=== PATIENT | female | born 1930 | race Caucasian/White ===

== ENCOUNTER 2018-03-23 12:57 | Inpatient (IN) | payer MEDICARE, BC ==
[~2018-03-23] VITALS: Ht 172.7 cm; Wt 60.8 kg
--- NOTE | ~2018-03-23 | HP ---
PATIENT: COREY GUILLEN MEDICAL RECORD: [id number] ACCOUNT: [id number] LOCATION:[facility] [id number] : [birth year] ADMISSION DATE: 03/23/18 HISTORY AND PHYSICAL EXAMINATION HISTORY OF PRESENT ILLNESS: An 87-year-old female, presented to the Emergency Room with a complaint of left lower quadrant abdominal pain, bright red blood 2 episodes this morning with a bowel movement, cramping, aching, similar episode 3 years ago with no significant findings after being treated for colitis. PAST MEDICAL HISTORY: Significant for hypertension, hyperlipidemia, angina. CURRENT MEDICATIONS: Listed as lisinopril, aspirin, Plavix, metoprolol. ALLERGIES: REPORTED MACRODANTIN. FAMILY HISTORY: Noncontributory. REVIEW OF SYSTEMS: GENERAL: No acute change in weight or appetite. HEENT: No cephalgia, visual changes, tinnitus, epistaxis, or dysphagia. CARDIOVASCULAR: Denies chest pain or palpitations. PULMONARY: Denies hemoptysis, denies shortness of breath. GASTROINTESTINAL: Admits hematochezia, left lower quadrant abdominal pain. Denies weight loss. GENITOURINARY: Denies dysuria. MUSCULOSKELETAL: No acute changes. ENDOCRINE: Denies polyuria, polydipsia, or polyphagia. PHYSICAL EXAMINATION: VITAL SIGNS: Temp 98.7, blood pressure 144/79, heart rate 94, respirations 20, O2 sats 96% room air. GENERAL: Alert, oriented, presently comfortable. HEENT: Normocephalic, atraumatic. Eyes: Pupils equal, round, reactive to light and accommodation. Extraocular muscles are intact. Conjunctivae is not injected. Ears: Canals patent, TMs are intact. Nose: Nares patent without drainage. Throat: No erythema, no exudates. NECK: Supple. No lymphadenopathy, no JVD. HEART: Regular rate and rhythm. No S3, S4, no rub. LUNGS: Clear to auscultation bilaterally. Breathing is nonlabored. ABDOMEN: Soft, mild left lower quadrant tenderness. No rebound or guarding. No palpable mass. EXTREMITIES: Present times 4. NEUROLOGIC: No focal deficits. Cranial nerves grossly intact. LABORATORY DATA: CBC: White count 10.1, hemoglobin 14.3, hematocrit 43.5, platelets 212. PT is 12.3, INR is 0.95, PTT is 24.4. Chemistry shows a sodium of 138, potassium 4.4, chloride 102, bicarbonate 24.8, BUN 16, creatinine 1.0, glucose 137. Stool was heme positive. LFTs normal. Lipase 152. CT shows thickening of the sigmoid colon consistent with acute colitis. ASSESSMENT AND PLAN: 1. Hematochezia, left lower quadrant abdominal pain, colitis. The patient started on empiric antibiotics, GI consulted. Monitor H&H. HISTORY AND PHYSICAL [id number] COREY GUILLEN 2. Hypertension, cautious. Restart her blood pressure medicines, monitor, supportive care. TRANSINT:[id number] Voice Confirmation ID: [id number] DOCUMENT ID: [id number] ALEXANDR WISE DO at 0930 CC: [id number] DICTATION DATE: 03/23/181916 CARPENTER ASSEMBLER: 03/23/181945 ADM IN [facility] [address] [place] [address]
--- NOTE | ~2018-03-23 | DS ---
PATIENT:COREY GUILLEN :[birth year] MEDICAL RECORD: [id number] DISCHARGE SUMMARY ADMISSION DATE: 03/23/18 DISCHARGE DATE: 03/26/18 DATE OF ADMISSION: 03/23/2018 DATE OF DISCHARGE: 03/26/2018 CONDITION ON DISCHARGE: Improved. ADMITTING DIAGNOSES: Hematochezia, left lower quadrant pain, hypertension. DISCHARGE DIAGNOSES: Lower GI bleed, essential hypertension, hyperlipidemia. HOSPITAL COURSE: This patient is an 87-year-old female who presented through the Emergency Room complaining of left lower quadrant pain as well as bright red blood times 2 episodes. She had been aching. She had a similar episode 3 years prior. PHYSICAL EXAMINATION: VITAL SIGNS: She was afebrile. Her vital signs were stable. HEENT: Unremarkable. NECK: Supple. There was no adenopathy. HEART: Regular. LUNGS: Clear. She had left lower quadrant tenderness. White count was 10.1, hemoglobin 14.3, hematocrit 43.5, and platelets 212. PT was 12.3, INR 0.95, PTT was 24.4. LFTs were normal. CT showed thickening of the sigmoid colon consistent with acute colitis. The patient was admitted and placed on IV antibiotics. GI consultation was obtained. She was seen in consultation by Dr. Jamison. She did agree with antibiotics as well as felt the patient was at a very high risk for any instrumentation. Should the patient continue to have rectal bleeding, it was felt that she should consider CTA of the abdomen as well as possible flexible sigmoidoscopy. The patient's condition did improve with IV antibiotics. On the 1st, her white count was 5.8, hemoglobin 10.7, hematocrit was 32.5, and her platelets were 166. Sodium 144, potassium 3.7, chloride 109, BUN 11, creatinine 0.8. The patient was stable. It was felt she could be discharged. She was discharged on lisinopril 10 mg one p.o. daily, Pravachol 20 mg once a day, Lopressor 25 mg p.o. b.i.d., Plavix 75 mg p.o. daily, Cipro 500 mg p.o. b.i.d. for 10 days total, Flagyl 500 mg p.o. t.i.d. for 10 days total. The patient is to be on a high-fiber diet. Activities ad sahquille. She will follow up with me in approximately one week. TRANSINT:[id number] Voice Confirmation ID: [id number] DOCUMENT ID: [id number] AMADOR IYER MD at 0701 CC: [id number] DICTATION DATE: 04/28/18 1508 ADMINISTRATIVE AIDE: 04/28/18 2322 DIS IN 03/26/18 [id number] [place] [address]
[~2018-03-23 12:57] MED LIST: LISINOPRIL10 MG PO; LOPRESSOR25 MG PO; PLAVIX75 MG PO; PRAVACHOL20 MG PO
[2018-03-23 13:23] LABS: BASOPHILS 0.2 % (0-2); EOSINOPHILS 0.1 % (0-7); HEMATOCRIT 43.5 % (36.0-48.0); HEMOGLOBIN 14.3 g/dL (12-16); IMMATURE GRANULOCYTES 0.2 % (0-5); LYMPHOCYTES 20.9 % (15-50); MCHC 32.9 g/dL (31.0-37.0); MCV 97.3 fL (80.0-100.0); MONOCYTES 4.5 % (2-11); NEUTROPHILS 74.1 % (40-80); PLATELET COUNT 212 10x3/uL (130-400); RBC 4.47 10x6/uL (4.00-5.40); RDW 13.9 % (11.5-14.5); WBC 10.1 10x3/uL (4.8-10.8)
[2018-03-23 13:33] LABS: INR 0.95 (0.85-1.17); PROTIME 12.3 SECONDS (11.6-15.0)
[2018-03-23 13:34] LABS: APTT 24.4 SECONDS (22.8-39.4)
[2018-03-23 13:39] LABS: ALBUMIN 3.7 g/dL (3.4-5.0); ANION GAP 15.6 mmol/L (8-16); BILIRUBIN - TOTAL 0.58 mg/dL (0.2-1.3); CALCIUM 9.4 mg/dL (8.5-10.1); CARBON DIOXIDE 24.8 mmol/L (21.0-32.0); POTASSIUM - SERUM 4.4 mmol/L (3.5-5.1); PROTEIN - SERUM 7.7 g/dL (6.4-8.2)
[2018-03-23 22:58] VITALS: BP 153/48
[2018-03-24 00:49] VITALS: BP 153/48; BMI 20.4
[2018-03-24 06:17] LABS: BASOPHILS 0.3 % (0-2); EOSINOPHILS 0.6 % (0-7); IMMATURE GRANULOCYTES 0.3 % (0-5); LYMPHOCYTES 43.9 % (15-50); MCH 31.2 pg (26.0-34.0); MCHC 32.1 g/dL (31.0-37.0); MCV 97.1 fL (80.0-100.0); MEAN PLATELET VOLUME 11.2 fL (7.4-10.4); MONOCYTES 9.3 % (2-11); NEUTROPHILS 45.6 % (40-80); RDW 14.2 % (11.5-14.5)
[2018-03-24 06:21] LABS: PROTIME 14.4 SECONDS (11.6-15.0)
[2018-03-24 06:22] LABS: APTT 26.9 SECONDS (22.8-39.4); INR 1.16 (0.85-1.17)
[2018-03-24 06:23] LABS: HEMATOCRIT 33.6 % (36.0-48.0); HEMOGLOBIN 10.8 g/dL (12-16); PLATELET COUNT 161 10x3/uL (130-400); RBC 3.46 10x6/uL (4.00-5.40); WBC 6.9 10x3/uL (4.8-10.8)
[2018-03-24 06:31] LABS: ALBUMIN 2.8 g/dL (3.4-5.0); ANION GAP 11.3 mmol/L (8-16); BILIRUBIN - TOTAL 0.5 mg/dL (0.2-1.3); C-REACTIVE PROTEIN 1.4 mg/dL (0.0-0.9); CALCIUM 8.4 mg/dL (8.5-10.1); CARBON DIOXIDE 27.4 mmol/L (21.0-32.0); CREATININE - SERUM 0.9 mg/dL (0.6-1.3); POTASSIUM - SERUM 3.7 mmol/L (3.5-5.1); PROTEIN - SERUM 5.8 g/dL (6.4-8.2)
[2018-03-24 08:16] VITALS: BP 109/47
[2018-03-24 12:25] VITALS: BP 120/63
[2018-03-24 15:55] VITALS: BP 125/55
[2018-03-24 18:28] LABS: HEMATOCRIT 32.8 % (36.0-48.0); HEMOGLOBIN 10.5 g/dL (12-16)
[2018-03-24 21:56] VITALS: BP 135/55
[2018-03-25 02:13] VITALS: BP 137/51
[2018-03-25 06:13] LABS: BASOPHILS 0.5 % (0-2); EOSINOPHILS 0.8 % (0-7); HEMATOCRIT 33.3 % (36.0-48.0); HEMOGLOBIN 10.8 g/dL (12-16); IMMATURE GRANULOCYTES 0.2 % (0-5); LYMPHOCYTES 37.3 % (15-50); MCH 31.4 pg (26.0-34.0); MCHC 32.4 g/dL (31.0-37.0); MCV 96.8 fL (80.0-100.0); MEAN PLATELET VOLUME 11.1 fL (7.4-10.4); MONOCYTES 8.9 % (2-11); NEUTROPHILS 52.3 % (40-80); PLATELET COUNT 168 10x3/uL (130-400); RBC 3.44 10x6/uL (4.00-5.40); RDW 14.4 % (11.5-14.5); WBC 6.5 10x3/uL (4.8-10.8)
[2018-03-25 06:44] LABS: ALBUMIN 2.8 g/dL (3.4-5.0); ANION GAP 14.6 mmol/L (8-16); BILIRUBIN - TOTAL 0.44 mg/dL (0.2-1.3); CALCIUM 8.3 mg/dL (8.5-10.1); CARBON DIOXIDE 24.7 mmol/L (21.0-32.0); CREATININE - SERUM 0.8 mg/dL (0.6-1.3); POTASSIUM - SERUM 3.3 mmol/L (3.5-5.1)
[2018-03-25 09:41] VITALS: BP 165/65
[2018-03-25 13:12] VITALS: BP 184/63
[2018-03-25 14:30] VITALS: Ht 172.7 cm; Wt 60.8 kg
[2018-03-25 17:17] VITALS: BP 169/70
[2018-03-26 05:03] LABS: BASOPHILS 0.3 % (0-2); HEMATOCRIT 32.5 % (36.0-48.0); HEMOGLOBIN 10.7 g/dL (12-16); IMMATURE GRANULOCYTES 0.2 % (0-5); LYMPHOCYTES 36.8 % (15-50); MCH 31.6 pg (26.0-34.0); MCHC 32.9 g/dL (31.0-37.0); MCV 95.9 fL (80.0-100.0); MEAN PLATELET VOLUME 11.2 fL (7.4-10.4); MONOCYTES 10.5 % (2-11); NEUTROPHILS 51.2 % (40-80); PLATELET COUNT 166 10x3/uL (130-400); RBC 3.39 10x6/uL (4.00-5.40); RDW 14.1 % (11.5-14.5); WBC 5.8 10x3/uL (4.8-10.8)
[2018-03-26 05:16] LABS: ANION GAP 11.8 mmol/L (8-16); CALCIUM 8.5 mg/dL (8.5-10.1); CARBON DIOXIDE 26.9 mmol/L (21.0-32.0); CREATININE - SERUM 0.8 mg/dL (0.6-1.3); POTASSIUM - SERUM 3.7 mmol/L (3.5-5.1)
[2018-03-26] MEDS ORDERED: CIPRO500 MG PO (06:41)
[2018-03-26] MEDS ORDERED: FLAGYL500 MG PO (06:42)
[2018-03-26 08:10] VITALS: BP 140/61
== END 2018-03-26 10:00 | disposition home or self-care (01) | DRG 395 ==
LOC: D.ER 12:57 → D.MS 15:12 → D.EDHOLD 15:12 → D.MS 16:10
PROVIDERS: Emergency Medicine; Family Medicine; Internal Medicine Gastroenterology
DX: K55.9 Vascular disorder of intestine, unspecified (principal); I10 Essential (primary) hypertension; E78.5 Hyperlipidemia, unspecified